=== PATIENT | female | born 1965 | race American Indian/Alaskan Native ===

== ENCOUNTER 2020-08-03 14:15 | Emergency (ER) | payer SELFPAY ==
[2020-08-03 15:06] VITALS: BP 173/85
[2020-08-03] MEDS ORDERED: traMADol 50 MG TAB PO ONE (16:49)
--- NOTE | 2020-08-03 17:03 | Emergency Department Report ---
ED Upper Extremity Inj HPI - General Chief Complaint: Fall Stated Complaint: FALL Time Seen by Provider: 08/03/20 16:45 Source: patient, EMS Mode of arrival: Wheelchair Limitations: No Limitations - History of Present Illness Initial Comments: This is a 55-year-old -[place] female states that she slipped and fell at [employer] today. She fell onto her right hip complaining of right hip pain. Patient reports history of previous right hip replacement in 2004. She denies any loss of consciousness any neck or back pain or known injuries she is cu rrently only complaining of a right hip pain MD Complaint: Injury to:: right (HIP) -: Sudden, This afternoon Other Injuries: none Handedness: right Place: other ([place]) Improves With: other Worsens With: none Context: fall Associated Symptoms: denies other symptoms - Related Data Previous Rx's Medication Instructions Recorded Last Taken Type Ibuprofen [Motrin] 600 mg PO Q8H PRN #21 tablet 08/03/20 Unknown Rx Allergies Allergy/AdvReac Type Severity Reaction Status Date / Time contrast Allergy Shortness Uncoded 08/03/20 15:06 of Breath ED Review of Systems ROS: Stated complaint: FALL Other details as noted in HPI Comment: All other systems reviewed and negative Constitutional: no symptoms reported. denies: chills, fever, malaise Eyes: denies: eye pain, eye discharge, vision change ENT: denies: ear pain, hearing loss Gastrointestinal: denies: abdominal pain, nausea, vomiting, constipation, hematemesis Musculoskeletal: other (right hip pain ). denies: back pain Neurological: denies: headache, numbness, paresthesias, abnormal gait, vertigo Psychiatric: denies: homicidal thoughts Hematological/Lymphatic: denies: as per HPI ED Past Medical Hx - Past Medical History Previous Medical History?: Yes Hx Arthritis: Yes Additional medical history: Arthritis - Surgical History Past Surgical History?: Yes Additional Surgical History: Right hip, Left hip - Social History Smoking Status: Never Smoker Substance Use Type: Alcohol - Medications Home Medications: Home Medications Medication Instructions Recorded Confirmed Last Taken Type Ibuprofen [Motrin] 600 mg PO Q8H PRN #21 tablet 08/03/20 Unknown Rx ED Physical Exam - General Limitations: No Limitations General appearance: alert, in no apparent distress - Head Head exam: Present: atraumatic - Eye Eye exam: Present: normal appearance - ENT ENT exam: Present: normal exam, mucous membranes moist - Neck Neck exam: Present: normal inspection, full ROM. Absent: tenderness, lymphadenopathy - Respiratory Respiratory exam: Present: normal lung sounds bilaterally. Absent: respiratory distress - Cardiovascular Cardiovascular Exam: Present: regular rate, normal heart sounds - GI/Abdominal GI/Abdominal exam: Present: soft, normal bowel sounds. Absent: distended, tenderness - Extremities Exam Extremities exam: Present: normal inspection, tenderness (right lateral hip tenderness) - Back Exam Back exam: Present: normal inspection - Neurological Exam Neurological exam: Present: alert, oriented X3 - Psychiatric Psychiatric exam: Present: normal affect, normal mood - Skin Skin exam: Present: warm, dry, intact ED Course Vital Signs 08/03/20 08/03/20 15:02 16:54 Temperature 98.2 F Pulse Rate 57 L Respiratory 18 18 Rate Blood Pressure 173/85 O2 Sat by Pulse 95 Oximetry - Reevaluation(s) Reevaluation #1: 08/03/20 18:28 Patient reports decreasing pain she is in no distress ED Medical Decision Making - Radiology Data Radiology results: report reviewed FINDINGS: Bilateral hip prostheses are in position. Bones are osteopenic, but I see no fracture or other acute abnormality. - Medical Decision Making 55-year-old female she is status post a fall earlier today complaining of right hip pain she has a history of bilateral hip prosthesis. X-ray done there is no signs of fracture or dislocation. Patient being released to follow-up with her primary care doctor or orthopedist of her choice Critical Care Time: No Critical care attestation.: If time is entered above; I have spent that time in minutes in the direct care of this critically ill patient, excluding procedure time. ED Disposition Clinical Impression: Contusion of hip, right Qualifiers: Encounter type: initial encounter Qualified Code(s): S70.01XA - Contusion of right hip, initial encounter Disposition: - TO HOME OR SELFCARE Is pt being admited?: No Does the pt Need Aspirin: No Condition: Stable Instructions: Contusion in Adults (ED), RICE Therapy (ED) Additional Instructions: The x-ray of your hips showed no fractures or dislocation. Apply ice off and on for the next 2 days. Then you can progress to using heat therapy. Take Motrin as prescribed as needed for pain. Follow-up with your primary care doctor and/or orthopedist of your choice if no improvement or worsening pain. Prescriptions: Ibuprofen [Motrin] 600 mg PO Q8H PRN #21 tablet PRN Reason: Pain Referrals: PRIMARY CARE, [Primary Care Provider] - 3-5 Days Time of Disposition: 18:31
--- NOTE | 2020-08-03 18:20 | XRay Report ---
RIGHT HIP 2 VIEWS INDICATION / CLINICAL INFORMATION: FALL ONTO RIGHT HIP. COMPARISON: None available. FINDINGS: Bilateral hip prostheses are in position. Bones are osteopenic, but I see no fracture or other acute abnormality. Signer Name: Eladio Garduno MD Signed: 08/03/2020 6:16 PM Workstation Name: [id number]
[2020-08-03] MEDS ORDERED: KETOROLAC 60 MG/2 ML INJ IM ONE (18:36)
== END 2020-08-03 19:16 | disposition home or self-care (01) ==
LOC: ED 14:15
DX: S70.01XA Contusion of right hip, initial encounter (principal); M13.88 Other specified arthritis, other site; Z91.041 Radiographic dye allergy status; X58.XXXA Exposure to other specified factors, initial encounter; Y93.89 Activity, other specified; Y92.89 Other specified places as the place of occurrence of the external cause; Y99.8 Other external cause status
CPT/HCPCS: 73502; 96372; 99283; J1885